=== PATIENT | female | born 1970 | race Caucasian/White ===

== ENCOUNTER → 2018-11-23 | Outpatient (CLI) | payer BC, OTHER ==
--- NOTE | 2018-11-28 10:01 | MM ---
Reason for exam: screening (asymptomatic). Last mammogram was performed 4 years and 8 months ago. History: Family history of premenopausal breast cancer in maternal grandmother. Took hormonal contraceptives for 1 year 2 months beginning at age 37. Physical Findings: A clinical breast exam by your physician is recommended on an annual basis and results should be correlated with mammographic findings. MG 3D Screening Mammo W/Cad Bilateral CC and MLO view(s) were taken. Prior study comparison: March 14, 2014, bilateral MG screening mammo w CAD. The breast tissue is heterogeneously dense. This may lower the sensitivity of mammography. No significant changes when compared with prior studies. ASSESSMENT: Negative, BI-RAD 1 RECOMMENDATION: Routine screening mammogram of both breasts in 1 year.
== END | disposition home or self-care (01) ==
LOC: RADMAMWWP 16:17
PROVIDERS: ATTEND Internal Medicine
DX: Z12.31 Encounter for screening mammogram for malignant neoplasm of breast (principal); Z80.3 Family history of malignant neoplasm of breast
CPT/HCPCS: 77063; 77067

== ENCOUNTER → 2019-09-25 | Outpatient (CLI) | payer OTHER ==
--- NOTE | 2019-09-25 07:31 | US ---
EXAMINATION TYPE: US extremity nonvasc mass RT DATE OF EXAM: 09/25/2019 COMPARISON: NONE CLINICAL HISTORY: R22.9 swelling. No evidence of mass by ultrasound. IMPRESSION: No distinct abnormality seen. Correlate clinically.
== END | disposition home or self-care (01) ==
LOC: RADUSWWP 06:51
PROVIDERS: ATTEND Internal Medicine
DX: R22.41 Localized swelling, mass and lump, right lower limb (principal)

== ENCOUNTER → 2023-07-14 | Outpatient (CLI) | payer OTHER ==
--- NOTE | 2023-07-31 15:47 | MM ---
Reason for Exam: Screening (asymptomatic). Last mammogram was performed 3 year(s) and 5 month(s) ago. Patient History: Menarche at age 11. First Full-Term at age 28. Perimenopausal. Hormonal Contraceptives, starting at age 37 for 1 year, 2 months. Maternal grandmother had breast cancer. Risk Values: Maren 5 year model risk: 1.3%. NCI Lifetime model risk: 10.3%. Prior Study Comparison: 10/12/2010 Bilateral Screening Mammogram, [facility]. 10/28/2011 Bilateral Diagnostic Mammogram, [facility]. 03/14/2014 Bilateral Screening Mammogram, [facility]. 11/23/2018 Bilateral Screening Mammogram, [facility]. 02/24/2020 Bilateral Diagnostic Mammogram, [facility]. 04/01/2020 Left Diagnostic Ultrasound, [facility]. Tissue Density: The breast tissue is heterogeneously dense. This may lower the sensitivity of mammography. Findings: Analyzed By CAD. Asymmetric density subareolar left breast remains unchanged when compared back to 2019. There is no suspicious group of microcalcifications or new suspicious mass in either breast. Overall Assessment: Benign, BI-RAD 2 Management: Screening Mammogram of both breasts in 1 year. . Patient should continue monthly self-breast exams. A clinical breast exam by your physician is recommended on an annual basis. This exam should not preclude additional follow-up of suspicious palpable abnormalities. Note on Maren scores and lifetime risk: 1. A Maren score greater than 3% is considered moderate risk. If this is the case, consider specialist referral to assess eligibility for a risk reducing agent. 2. If overall lifetime risk for the development of breast cancer is 20% or higher, the patient may qualify for future screening with alternating mammogram and breast MRI. Electronically signed and approved by: Natalee Bermudez M.D. Radiologist
== END | disposition home or self-care (01) ==
LOC: RADMAMWWP 13:47
PROVIDERS: ATTEND Internal Medicine
DX: Z12.31 Encounter for screening mammogram for malignant neoplasm of breast (principal); Z80.3 Family history of malignant neoplasm of breast
CPT/HCPCS: 77063; 77067

== ENCOUNTER → 2024-10-01 | Outpatient (CLI) | payer OTHER ==
--- NOTE | 2024-10-01 13:40 | CA ---
Exercise Stress Test Report Name: Kim Crespo Exam Date: 10/01/2024 12:30 Exam Location: [place] Stress Ht (in): 68 Wt (lb): 208 BSA: 2.08 Ordering Phys: Lizz Cordova MD Referring Phys: JANN,, Technologist: GARRISON RAE Age: 54 Gender: F : 1970 Procedure CPT: Indications: R07.89 chest pain ICD-10 Codes: Patient History: Medications: Meds past 24 hrs: Pretest Chest Pain: STRESS TEST Bon Protocol Exercise Duration (min:sec): 07:[address] Depressions (mm): Angina Score: Castaneda Score: Resting HR (bpm): 75 Peak HR (bpm): 160 Resting BP (mmHg): 128 / 85 Peak BP (mmHg): 193 / 90 MPHR: 166 Target HR: 141 % MPHR: 96 METS: 8.7 Total Dose: Peak Dose: Atropine: Double Product: [id number] BP Response: Stress Termination: MAX EXERTION/TARGET HR Stress Symptoms: NO SYMPTOMS Stress Summary: ECG ANALYSIS Resting ECG: Sinus rhythm. Normal conduction. No arrhythmias. Normal repolarization. Stress ECG: No ECG evidence of ischemia with exercise. CONCLUSIONS Good exercise tolerance Normal electrocardiographic response to exercise with no evidence of stress induced ischemia Dr. Masha Yee MD (Electronically Signed) Final Date: 01 October 2024 13:39
== END | disposition home or self-care (01) ==
LOC: RADNMMAIN 10:54
PROVIDERS: ATTEND Internal Medicine
DX: R07.89 Other chest pain (principal)
CPT/HCPCS: 93017

== ENCOUNTER → 2024-10-04 | Outpatient (CLI) | payer OTHER ==
--- NOTE | 2024-10-04 15:29 | MM ---
Reason for Exam: Clinical finding. Last mammogram was performed 1 year(s) and 3 month(s) ago. Patient History: Menarche at age 11. First Full-Term at age 28. Perimenopausal. Hormonal Contraceptives, starting at age 37 for 1 year, 2 months. Maternal grandmother had breast cancer. Risk Values: Maren 5 year model risk: 1.4%. NCI Lifetime model risk: 10.1%. Tissue Density: The breasts are heterogeneously dense, which may obscure small masses. Findings: Analyzed By CAD. The bilateral areas of asymmetric density remain unchanged. Chronic nodularity lateral right breast. No significant change from prior exams. Overall Assessment: Benign, BI-RAD 2 Management: Screening Mammogram of both breasts in 1 year. If there are any palpable abnormalities outside of the breasts or axilla, consider a soft tissue ultrasound to further evaluate. Results were given to the patient verbally at the time of exam. Patient should continue monthly self-breast exams. A clinical breast exam by your physician is recommended on an annual basis. This exam should not preclude additional follow-up of suspicious palpable abnormalities. Note on Maren scores and lifetime risk: 1. A Maren score greater than 3% is considered moderate risk. If this is the case, consider specialist referral to assess eligibility for a risk reducing agent. 2. If overall lifetime risk for the development of breast cancer is 20% or higher, the patient may qualify for future screening with alternating mammogram and breast MRI. [facility], , 10/04/2024 3:26 PM. Electronically signed and approved by: Natalee Bermudez M.D. Radiologist
== END | disposition home or self-care (01) ==
LOC: RADMAMWWP 14:33
PROVIDERS: ATTEND Internal Medicine
DX: R92.333 Mammographic heterogeneous density, bilateral breasts (principal); N63.10 Unspecified lump in the right breast, unspecified quadrant; Z80.3 Family history of malignant neoplasm of breast
CPT/HCPCS: 77062; 77066

== ENCOUNTER → 2024-10-07 | Outpatient (CLI) | payer OTHER ==
--- NOTE | 2024-10-07 09:15 | US ---
EXAMINATION TYPE: US liver DATE OF EXAM: 10/07/2024 COMPARISON: NONE CLINICAL INDICATION: Female, 54 years old with history of R74.8 ABNORMAL LEVELS OF OTHER SERUM ENZYME S; elevated liver enzymes TECHNIQUE: Grayscale and color Doppler imaging of the right upper quadrant was performed. FINDINGS: EXAM MEASUREMENTS: Liver Length: 14.4 cm Gallbladder Wall: Surgically absent CBD: 0.38 cm Right Kidney: 10.6 x 3.5 x 4.5 cm [employer]GER NOTES: Pancreas: wnl Liver: heterogeneous Gallbladder: Surgically absent Evidence for sonographic Shin's sign: No CBD: wnl Right Kidney: wnl IMPRESSION: 1. No evidence for acute process. 2. Hepatic steatosis [facility], , 10/07/2024 9:13 AM
== END | disposition home or self-care (01) ==
LOC: RADUSWWP 08:03
PROVIDERS: ATTEND Internal Medicine
DX: K76.0 Fatty (change of) liver, not elsewhere classified (principal); R74.8 Abnormal levels of other serum enzymes
CPT/HCPCS: 76705

== ENCOUNTER → 2024-11-06 | Outpatient (CLI) | payer OTHER ==
--- NOTE | 2024-11-06 12:20 | CA ---
Transthoracic Echo Report Name: Kim Crespo Age: 54 Gender: F : 1970 Exam Date: 11/06/2024 08:42 Exam Location: [place] [facility] Ht (in): 68 Wt (lb): 202 Ordering Physician: Lizz Cordova MD Attending/Referring Phys: Poultry Breeder Giovanna Leal RDCS Procedure CPT: Indications: R07.89 chest pain Cardiac Hx: Technical Quality: Good Contrast 1: Total Dose (mL): Contrast 2: Total Dose (mL): MEASUREMENTS (Male / Female) Normal Values 2D ECHO LV Diastolic Diameter PLAX 4.0 cm 4.2 - 5.9 / 3.9 - 5.3 cm LV Systolic Diameter PLAX 2.2 cm IVS Diastolic Thickness 1.2 cm 0.6 - 1.0 / 0.6 - 0.9 cm LVPW Diastolic Thickness 1.2 cm 0.6 - 1.0 / 0.6 - 0.9 cm LV Relative Wall Thickness 0.6 RV Internal Dim ED PLAX 3.3 cm LA Systolic Diameter LX 3.5 cm 3.0 - 4.0 / 2.7 - 3.8 cm LV Diastolic Volume MOD BP 90.5 cm??? 67 - 155 / 56 - 104 cm??? LV Systolic Volume MOD BP 31.3 cm??? 22 - 58 / 19 - 49 cm??? LV Ejection Fraction MOD BP 65.4 % >= 55 % LV Cardiac Index MOD BP 1672.1 cm???/min???m??? LV Diastolic Volume MOD 4C 84.1 cm??? LV Systolic Volume MOD 4C 38.3 cm??? LV Ejection Fraction MOD 4C 54.4 % LV Cardiac Index MOD 4C 1293.2 cm???/min???m??? LV Diastolic Length 4C 8.8 cm LV Systolic Length 4C 6.8 cm LV Diastolic Volume MOD 2C 102.7 cm??? LV Systolic Volume MOD 2C 42.2 cm??? LV Ejection Fraction MOD 2C 59.0 % LV Cardiac Index MOD 2C 1711.4 cm???/min???m??? LV Diastolic Length 2C 8.8 cm LV Systolic Length 2C 7.2 cm M-MODE Aortic Root Diameter MM 3.3 cm LA Systolic Diameter MM 2.3 cm LA Ao Ratio MM 0.7 DOPPLER AV Peak Velocity 128.1 cm/s AV Peak Gradient 6.6 mmHg AI Peak Velocity 429.1 cm/s AI Peak Gradient 73.6 mmHg AI Pressure Half Time 628.6 ms Mitral E Point Velocity 79.4 cm/s Mitral A Point Velocity 82.1 cm/s Mitral E to A Ratio 1.0 MV Deceleration Time 244.8 ms TR Peak Velocity 146.5 cm/s TR Peak Gradient 8.6 mmHg Right Ventricular Systolic Press 18.6 mmHg FINDINGS Left Ventricle Left ventricular ejection fraction is estimated at 55-60 %. Left ventricular cavity size normal. Mildly increased septal wall thickness. Mildly increased posterior wall thickness. Normal left ventricular wall motion. Right Ventricle Mild right ventricular dilatation. Right ventricular systolic pressure within normal limits. Right Atrium Normal right atrial size. No right atrial thrombus or mass seen. Left Atrium Normal left atrial size. No left atrial thrombus or mass present. Mitral Valve Structurally normal mitral valve. No evidence for mitral valve prolapse. No mitral stenosis. Trace mitral regurgitation. Aortic Valve Trileaflet aortic valve. No aortic stenosis. Mild aortic regurgitation. Tricuspid Valve Structurally normal tricuspid valve. Trace to mild tricuspid regurgitation. Pulmonic Valve Structurally normal pulmonic valve. No pulmonic regurgitation. Pericardium No pericardial effusion. Aorta Normal size aortic root and proximal ascending aorta. CONCLUSIONS Normal biventricular systolic function No significant valvular abnormalities No pericardial effusion Previewed by: Dr. Dexter Loera MD (Electronically Signed) Final Date: 06 November 2024 12:19
== END | disposition home or self-care (01) ==
LOC: RADECHMAIN 08:34
PROVIDERS: ATTEND Internal Medicine
DX: R07.89 Other chest pain (principal)
CPT/HCPCS: 93306